=== PATIENT | male | born 1960 | race Caucasian/White ===

== ENCOUNTER 2024-11-19 11:24 | Outpatient (AMB) | payer BC, SELFPAY ==
--- NOTE | 2024-11-19 11:33 | MHC.PC.OV ---
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 Required: No Allergies No Known Allergies Allergy (Verified 11/19/24 11:36) Tobacco use date assessed: 11/19/24 Fall risk assessment: No Falls in past year Last assessed Fall Risk: 11/19/24 Dental Screening Dental Screen Date: 11/19/24 Did you have a dental visit in the last 12 months?: No Did you have a dental problem in the last 6 months where you did not have access to dental care?: No Was dental information given to patient?: Patient has dentist HPI HPI Comments History of Present Illness Details 64 year old male with a past medical history of osteoarthritis, polyarthralgia, presenting to [facility]. Saw me remotely for the past few years had been following at [facility] with Dr Mayorga who retired Patient reports diffuse arthritis-joint pain of the hands, wrists, knees hips, shoulders. Has tried all otc medication. Aleve was working but more or less stopped being effective. Bad side effects with oxycodone in the past. Difficulty walking. Numbness from the bottom of feet.foot bad develops within seconds of standing and over just a few minutes of walking or standing progresses up to the thighs. Has minimal low back pain. Glucose mildly elevated in the past. Declines colonoscopy ROS see HPI PHYSICAL EXAM: GENERAL: Alert and oriented x 3. NAD EYES: EOMI. Anicteric. HENT: Moist mucous membranes. No scleral icterus. No cervical lymphadenopathy. LUNGS: Clear to auscultation bilaterally. CARDIOVASCULAR: Regular rate and rhythm. No murmur. No JVD. ABDOMEN: Soft, non-tender +bs EXTREMITIES: No edema. Non-tender. Warm, +PT pulses SKIN: No rashes or lesions. Warm. NEUROLOGIC: Minimal decreased right dorsiflexion versus left. CN II-XII grossly intact PSYCHIATRIC: Cooperative. Appropriate mood and affect [facility] Surgical History H/O repair of rotator cuff History of tonsillectomy Family History Maternal Grandmother No problems noted. Maternal Grandfather Leukemia Mother Dementia Father Heart attack Sister Cancer Other FH: mental illness Social History Housing: House Patient Tobacco Use Status: Current everyday Tobacco user Cigarette Packs Per Day: 0.5 e-Cigarette/Vaping Use: Never Used Second Hand Smoke Exposure: No service: No Current occupational status: retired Cognitive needs: Yes (memory problems) Hearing needs: Yes (hard of hearing due to was build up) Vision needs: Yes (glasses) Physical exam (Primary Care) Vital Signs: Last Vital Signs Temp 98.2 F 11/19/24 11:42 Pulse 88 11/19/24 11:42 Resp 16 11/19/24 11:42 BP 136/86 11/19/24 11:42 Pulse Ox 96 11/19/24 11:42 Oxygen Delivery Method Room Air 11/19/24 11:42 BMI result Body Mass Index 40.4 Tobacco/Smoking Status: Tobacco use Status Tobacco use date assessed 11/19/24 11/19/24 11:45 Patient Tobacco Use Status Current everyday Tobacco 11/19/24 11:45 e-Cigarette/Vaping Use Never Used 11/19/24 11:45 Coding Level of Care Code New Pt Level 4 (41306) Complex EM visit Add On G2211 Diagnoses Polyarthralgia M25.50 Neuropathy involving both lower extremities G57.93 Laterality: bilateral Elevated glucose R73.09 Assessment & Plan Assessment & Plan (1) Polyarthralgia: Code(s): M25.50 - Pain in unspecified joint Category: Medical (2) Lower extremity neuropathy: Code(s): G57.90 - Unspecified mononeuropathy of unspecified lower limb Category: Medical Qualifiers: Laterality: bilateral Qualified Code(s): G57.93 - Unspecified mononeuropathy of bilateral lower limbs (3) Elevated glucose: Code(s): R73.09 - Other abnormal glucose Category: Medical Plan 64 year old male presenting to [facility] care Reporting severe neuropathy in b/l legs. labs ordered. us arterial, EMG ordered. Xray lumbar spine, referral neurology OA-Might consider xrays, rheumatology. Trial cymbalta. Tramadol prn severe pain. Can continue aleve Orders: Orders Comprehensive Met. Panel Today G57.90 - Unspecified mononeuropathy of unspecified lower limb, M25.50 - Pain in unspecified joint, R73.09 - Other abnormal glucose, Z13.220 - Encounter for screening for lipoid disorders, Z13.228 - Encounter for screening for other metabolic disorders US arterial duplex LE BI Today G57.90 - Unspecified mononeuropathy of unspecified lower limb, M25.50 - Pain in unspecified joint, R73.09 - Other abnormal glucose, Z13.220 - Encounter for screening for lipoid disorders, Z13.228 - Encounter for screening for other metabolic disorders Lyme IgG/IgM w/reflex to WB Today G57.90 - Unspecified mononeuropathy of unspecified lower limb, M25.50 - Pain in unspecified joint, R73.09 - Other abnormal glucose, Z13.220 - Encounter for screening for lipoid disorders, Z13.228 - Encounter for screening for other metabolic disorders Vitamin B12 and Folate Today G57.90 - Unspecified mononeuropathy of unspecified lower limb, M25.50 - Pain in unspecified joint, R73.09 - Other abnormal glucose, Z13.220 - Encounter for screening for lipoid disorders, Z13.228 - Encounter for screening for other metabolic disorders Hemoglobin A1c Today G57.90 - Unspecified mononeuropathy of unspecified lower limb, M25.50 - Pain in unspecified joint, R73.09 - Other abnormal glucose, Z13.220 - Encounter for screening for lipoid disorders, Z13.228 - Encounter for screening for other metabolic disorders NE electromyogram (EMG) Today G57.90 - Unspecified mononeuropathy of unspecified lower limb, M25.50 - Pain in unspecified joint, R73.09 - Other abnormal glucose, Z13.220 - Encounter for screening for lipoid disorders, Z13.228 - Encounter for screening for other metabolic disorders XR lumbar spine 2-3V Today G57.90 - Unspecified mononeuropathy of unspecified lower limb, M25.50 - Pain in unspecified joint, R73.09 - Other abnormal glucose, Z13.220 - Encounter for screening for lipoid disorders, Z13.228 - Encounter for screening for other metabolic disorders NE nerve conduction velocity Today G57.90 - Unspecified mononeuropathy of unspecified lower limb, M25.50 - Pain in unspecified joint, R73.09 - Other abnormal glucose, Z13.220 - Encounter for screening for lipoid disorders, Z13.228 - Encounter for screening for other metabolic disorders Referrals Neurology Referral G57.90 - Unspecified mononeuropathy of unspecified lower limb, M25.50 - Pain in unspecified joint, R73.09 - Other abnormal glucose, Z13.220 - Encounter for screening for lipoid disorders, Z13.228 - Encounter for screening for other metabolic disorders Medications: New duloxetine then increase to 60mg daily 30 mg PO DAILY 7 caps 0RF duloxetine 60 mg PO DAILY 90 caps 3RF tramadol 50 mg PO TID PRN 60 tabs 0RF pain Zepbound (tirzepatide (weight loss)) 2.5 mg (0.5 mL) subcut QWEEK 2 mL 3RF NS
[2024-11-19 11:42] VITALS: BP 136/86; PULSE 88; RESP 16; TEMP 36.8; O2SAT 96; BMI 40.4
== END 2024-11-19 12:24 | disposition home or self-care (01) ==
LOC: HO.HMCFM 11:25
PROVIDERS: PCP Internal Medicine; Visit Provider Internal Medicine
DX: M25.50 Pain in unspecified joint (principal); G57.93 Unspecified mononeuropathy of bilateral lower limbs; R73.09 Other abnormal glucose

== ENCOUNTER 2024-11-19 11:24 | Outpatient (REF) | payer BC, SELFPAY ==
[2024-11-19 18:09] LABS: Alanine Aminotransferase 47 U/L (0-40); Albumin Level 4.6 g/dL (3.5-5.0); Alkaline Phosphatase 65 U/L (39-117); Anion Gap 14 (12-20); Aspartate Amino Transferase 36 U/L (5-37); Blood Urea Nitrogen 19 mg/dL (9-16); Calcium 9.6 mg/dL (8.4-10.2); Carbon Dioxide 24 mmol/L (22-29); Chloride 105 mmol/L (96-108); Estimated Glomerular Filt Rate > 60; Potassium 4.3 mmol/L (3.3-5.1); Sodium 139 mmol/L (135-145); Total Protein 6.9 g/dL (6.5-8.0)
[2024-11-19 18:18] LABS: Folate 5.1 ng/mL (> or = 4.0); Vitamin B12 404 pg/mL (200-900)
[2024-11-21 07:48] LABS: Lyme Blot 1.74 index
[2024-11-21 15:05] LABS: Lyme Abs Screen POSITIVE
[2024-11-22 22:04] LABS: 39KD (IgG) Band NON-REACTIVE; 41KD (IgG) Band NON-REACTIVE; Lyme IgG Blot Interp NEGATIVE (NEGATIVE); Lyme IgM Blot Interp NEGATIVE (NEGATIVE)
== END 2024-11-19 11:25 | disposition home or self-care (01) ==
LOC: HO.WFDLDS 11:24
PROVIDERS: PCP Internal Medicine; Visit Provider Internal Medicine
DX: R73.09 Other abnormal glucose (principal); M25.50 Pain in unspecified joint; G57.93 Unspecified mononeuropathy of bilateral lower limbs; G57.90 Unspecified mononeuropathy of unspecified lower limb; Z13.228 Encounter for screening for other metabolic disorders; Z13.220 Encounter for screening for lipoid disorders
CPT/HCPCS: 36415; 80053; 82607; 82746; 83036; 86617; 86618

== ENCOUNTER 2025-01-01 08:23 | Outpatient (REF) | payer BC, SELFPAY ==
--- NOTE | 2025-01-01 08:25 | EMG_ITS ---
Chief complaint: Neuropathy Reason for referral: Neuropathy, polyarthralgia Referred by:?Eleonora Saleem Procedure done: Bilateral lower extremities NCS/EMG Bilateral tibial and peroneal motor responses were obtained with F waves. Tibial H reflexes were obtained. Bilateral superficial peroneal and sural sensory studies were performed and bilateral median and lateral mixed plantars sensory studies were performed. Left peroneal motor study was normal. Right peroneal study revealed decreased amplitude but normal conduction velocities. Tibial motor studies were normal.. Superficial peroneal amplitude were reduced on the left side and right superficial peroneal response was absent. Mixed plantars sensory studies revealed decreased amplitude and borderline conduction velocities. Impression: Moderate mostly sensory neuropathy in feet more than legs. MTDD
== END 2025-01-01 08:24 | disposition home or self-care (01) ==
LOC: HO.NEURO 08:23
PROVIDERS: PCP Internal Medicine; Visit Provider Internal Medicine
DX: G57.93 Unspecified mononeuropathy of bilateral lower limbs (principal); M25.571 Pain in right ankle and joints of right foot; M25.572 Pain in left ankle and joints of left foot; Z13.220 Encounter for screening for lipoid disorders; Z13.228 Encounter for screening for other metabolic disorders; R73.09 Other abnormal glucose
CPT/HCPCS: 95886; 95913

== ENCOUNTER → 2025-01-01 08:45 | Outpatient (BNV) | payer BC, SELFPAY | PROVIDERS: PCP Internal Medicine; Visit Provider Psychiatry & Neurology Neurology | DX: G57.83 Other specified mononeuropathies of bilateral lower limbs (principal) | CPT/HCPCS: 95886; 95913 ==

== ENCOUNTER 2025-01-22 08:27 | Outpatient (REF) | payer BC, SELFPAY ==
--- NOTE | ~2025-01-22 | US_ITS ---
EXAMINATION: Noninvasive assessment of the bilateral lower extremities without ARTERIAL DUPLEX, ANKLE BRACHIAL INDICES (ABIs), and PULSE VOLUME RECORDINGS (PVRs). CLINICAL INFORMATION: G 57.90. Unspecified mononeuropathy of the lower extremity. TECHNIQUE: Duplex Doppler techniques with waveform analysis and measurement of velocities in the bilateral common femoral, profunda femoris, superficial femoral, popliteal and tibial arteries were performed. The study was performed only at rest. COMPARISON: None FINDINGS: DIRECT DUPLEX DOPPLER FINDINGS: RIGHT LEG: Common femoral artery: 96 cm/s, phasicity: Triphasic Profunda femoris artery: 59 cm/s, phasicity: Triphasic. Superficial femoral artery (proximal): 76 cm/s, phasicity: Triphasic. Superficial femoral artery (mid): 71 cm/s, phasicity: Triphasic. Superficial femoral artery (distal): 71 cm/s, phasicity: Triphasic. Popliteal artery: 66 cm/s, phasicity: Triphasic. Posterior tibial artery: 78 cm/s, phasicity: Triphasic. Peroneal artery: 41 cm/s, phasicity: Triphasic. Anterior tibial artery: 66 cm/s, phasicity: Triphasic. Dorsalis pedis artery: 66 cm/s, phasicity:Triphasic. LEFT LEG: Common femoral artery: 80 cm/s, phasicity: Triphasic. Profunda femoris artery: 76 cm/s, phasicity: Triphasic. Superficial femoral artery (proximal): 25 cm/s, phasicity: Biphasic. Superficial femoral artery (mid): 62 cm/s, phasicity: Triphasic. Superficial femoral artery (distal): 47 cm/s, phasicity: Triphasic. Popliteal artery: 50 cm/s, phasicity: Triphasic. Posterior tibial artery: 65 cm/s, phasicity: Triphasic. Peroneal artery: 51 cm/s, phasicity: Triphasic. Anterior tibial artery: 68 cm/s, phasicity: Triphasic. Dorsalis pedis artery: 61 cm/s, phasicity: Triphasic. US/US arterial duplex LE BI IMPRESSION: Right leg: Normal patency and normal phasic waveforms. Left leg: Normal patency with normal waveforms with mild inflow disease in the proximal profundal femoral artery. Electronically signed by: Edawr Bain MD 01/22/2025 09:34 AM EDT RP
== END 2025-01-22 08:28 | disposition home or self-care (01) ==
LOC: HO.US 08:27
PROVIDERS: PCP Internal Medicine; Visit Provider Internal Medicine
DX: G57.90 Unspecified mononeuropathy of unspecified lower limb (principal); M25.50 Pain in unspecified joint; Z13.228 Encounter for screening for other metabolic disorders; R73.09 Other abnormal glucose; Z13.220 Encounter for screening for lipoid disorders
CPT/HCPCS: 93925

== ENCOUNTER → 2025-01-22 08:29 | Outpatient (BNV) | payer BC, SELFPAY | PROVIDERS: PCP Internal Medicine; Visit Provider Radiology Diagnostic Radiology | DX: I73.9 Peripheral vascular disease, unspecified (principal) | CPT/HCPCS: 93925 ==

== ENCOUNTER 2025-02-08 13:42 | Outpatient (AMB) | payer BC, SELFPAY ==
[2025-02-08 13:47] VITALS: BP 126/84; PULSE 93; RESP 16; O2SAT 96; BMI 39.7
--- NOTE | 2025-02-08 13:47 | MHC.PC.OV ---
Vital Signs 02/08/25 13:47 Height 5 ft 10.47 in Weight 280 lb 6 oz BMI 39.7 BP 126/84 Blood Pressure Location Rt brachial Position Sitting Respiration 16 Pulse 93 Pulse Source Pulse Oximeter Pulse Oximetry (%) 96 Oxygen Delivery Method Room Air Intake Visit Reasons: Go over results Intake Note: Ulrasound results. Nerve conduction study results. 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 Has tried all otc medication. Aleve was working but more or less stopped being effective. Bad side effects with oxycodone in the past. He has taken 2 or 3 tramadol only. Did not tolerate cymbalta. Difficulty walking. Numbness from the bottom of feet.foot bad develops within seconds of standing and over just a few minutes of walking or standing progresses up to the thighs. Has minimal low back pain. Xray lumbar spine with moderate disc space narrowing, arthritis. EMG with predominantly sensory neuropathy. Didnt realize he had separate neurology consult. Re-referred. Symptoms continue. Labs benign. Arterial b/l Right leg: Normal patency and normal phasic waveforms. Left leg: Normal patency with normal waveforms with mild inflow disease in the proximal profundal femoral artery. EMG Impression: Moderate mostly sensory neuropathy in feet more than legs. Declines colonoscopy ROS see HPI PHYSICAL EXAM: GENERAL: Alert and oriented x 3. NAD EYES: EOMI. Anicteric. HENT: Moist mucous membranes. No scleral icterus. No cervical lymphadenopathy. LUNGS: Clear to auscultation bilaterally. CARDIOVASCULAR: Regular rate and rhythm. No murmur. No JVD. ABDOMEN: Soft, non-tender +bs EXTREMITIES: No edema. Non-tender. SKIN: No rashes or lesions. Warm. NEUROLOGIC: Minimal decreased right dorsiflexion versus left. CN II-XII grossly intact PSYCHIATRIC: Cooperative. Appropriate mood and affect PENDING SALE TO [facility] Surgical History H/O repair of rotator cuff History of tonsillectomy Family History Maternal Grandmother No problems noted. Maternal Grandfather Leukemia Mother Dementia Father Heart attack Sister Cancer Other FH: mental illness Social History Housing: House Patient Tobacco Use Status: Current everyday Tobacco user Cigarette Packs Per Day: 0.5 e-Cigarette/Vaping Use: Never Used Second Hand Smoke Exposure: No service: No Current occupational status: retired Cognitive needs: Yes (memory problems) Hearing needs: Yes (hard of hearing due to was build up) Vision needs: Yes (glasses) Physical exam (Primary Care) Vital Signs: Last Vital Signs Pulse 93 02/08/25 13:47 Resp 16 02/08/25 13:47 BP 126/84 02/08/25 13:47 Pulse Ox 96 02/08/25 13:47 Oxygen Delivery Method Room Air 02/08/25 13:47 BMI result Body Mass Index 39.7 Tobacco/Smoking Status: Tobacco use Status Tobacco use date assessed 02/08/25 02/08/25 13:55 Patient Tobacco Use Status Current everyday Tobacco 02/08/25 13:50 e-Cigarette/Vaping Use Never Used 02/08/25 13:50 Coding Level of Care Code Est Pt Level 4 (10629) Diagnoses Polyarthralgia M25.50 Elevated glucose R73.09 Spinal stenosis, unspecified spinal region M48.00 Spinal region: unspecified Assessment & Plan Assessment & Plan (1) Polyarthralgia: Code(s): M25.50 - Pain in unspecified joint Category: Medical (2) Elevated glucose: Code(s): R73.09 - Other abnormal glucose Category: Medical (3) Spinal stenosis: Code(s): M48.00 - Spinal stenosis, site unspecified Category: Medical Qualifiers: Spinal region: unspecified Qualified Code(s): M48.00 - Spinal stenosis, site unspecified Plan 64 year old for follow up LE weakness, pain-referral to neurology. MRI lumbar spine Polyarthralgia-referral rheumatology. Labs ordered. [place] gabapentin Orders: Orders Erythrocyte Sedimentation Rate Today M25.50 - Pain in unspecified joint C Reactive Protein Today M25.50 - Pain in unspecified joint Uric Acid Today M25.50 - Pain in unspecified joint DONALD Reflex Titer and Pattern Today G57.93 - Unspecified mononeuropathy of bilateral lower limbs, M25.50 - Pain in unspecified joint MR lumbar spine wo con Today G57.93 - Unspecified mononeuropathy of bilateral lower limbs, M48.00 - Spinal stenosis, site unspecified, R29.898 - Other symptoms and signs involving the musculoskeletal system Rheumatoid Factor Today M25.50 - Pain in unspecified joint Cyclic Citrullinated Peptide Today M25.50 - Pain in unspecified joint Referrals Neurology Referral G57.93 - Unspecified mononeuropathy of bilateral lower limbs, M48.00 - Spinal stenosis, site unspecified, R29.898 - Other symptoms and signs involving the musculoskeletal system Rheumatology Referral M25.50 - Pain in unspecified joint Medications: New gabapentin 300 mg PO TID 90 caps 3RF
== END 2025-02-08 14:22 | disposition home or self-care (01) ==
LOC: HO.HMCFM 13:43
PROVIDERS: PCP Internal Medicine; Visit Provider Internal Medicine
DX: M25.50 Pain in unspecified joint (principal); R73.09 Other abnormal glucose; M48.00 Spinal stenosis, site unspecified

== ENCOUNTER 2025-02-08 13:42 | Outpatient (REF) | payer BC, SELFPAY ==
[2025-02-08 18:52] LABS: Uric Acid 4.3 mg/dL (3.4-7.0)
[2025-02-08 20:52] LABS: Erythrocyte Sedimentation Rate 6 MM/HR (0-15)
[2025-02-12 10:08] LABS: Anti Nuclear Antibody Screen NEGATIVE (NEGATIVE)
== END 2025-02-08 13:43 | disposition home or self-care (01) ==
LOC: HO.WFDLDS 13:42
PROVIDERS: PCP Internal Medicine; Visit Provider Internal Medicine
DX: G57.93 Unspecified mononeuropathy of bilateral lower limbs (principal); M25.50 Pain in unspecified joint; R73.09 Other abnormal glucose; M48.00 Spinal stenosis, site unspecified
CPT/HCPCS: 36415; 84550; 85652; 86038; 86140; 86200; 86431

== ENCOUNTER 2025-03-01 16:08 | Outpatient (AMB) | payer BC, SELFPAY ==
--- NOTE | 2025-03-01 15:30 | A.OFFPC_ITS ---
Intake Visit Reasons: ultrasound Allergies No Known Allergies Allergy (Verified 02/08/25 13:52) Tobacco use date assessed: 02/08/25 Dental Screening Dental Screen Date: 11/19/24 HPI HPI Comments History of Present Illness Details 64 year old male with a past medical his tory of lumbar ddd, LE weakness, osteoarthritis, polyarthralgia, presenting for follow up Difficulty walking. Numbness from the bottom of feet. foot pain develops within seconds of standing and over just a few minutes of walking or standing p rogresses up to the thighs. Has minimal low back pain. Xray lumbar spine with moderate disc space narrowing, arthritis. MRI is pending. EMG with predominantly sensory neuropathy. Labs benign. Arterial u/s benign. Neurology referral is pending. Patient has continue diffuse arthritis-joint pain of the hands, wrists, knees hips, shoulders. Has tried all otc medication. Aleve was working but more or less stopped being effective. Bad side effects with oxycodone in the past. He has taken 2 or 3 tramadol only. Did not tolerate cymbalta. Rheumatology referral was placed. He Arterial b/l Right leg: Normal patency and normal phasic waveforms. Left leg: Normal patency with normal waveforms with mild inflow disease in the proximal profundal femoral artery. EMG Impression: Moderate mostly sensory neuropathy in feet more than legs. Declines colonoscopy ROS see HPI PHYSICAL EXAM: Telehealth [facility] Surgical History H/O repair of rotator cuff History of tonsillectomy Family History Maternal Grandmother No problems noted. Maternal Grandfather Leukemia Mother Dementia Father Heart attack Sister Cancer Other FH: mental illness Social History Housing: House Patient Tobacco Use Status: Current everyday Tobacco user Cigarette Packs Per Day: 0.5 e-Cigarette/Vaping Use: Never Used Second Hand Smoke Exposure: No service: No Current occupational status: retired Cognitive needs: Yes (memory problems) Hearing needs: Yes (hard of hearing due to was build up) Vision needs: Yes (glasses) Physical exam (Primary Care) Tobacco/Smoking Status: Tobacco use Status Tobacco use date assessed 02/08/25 03/01/25 15:30 Patient Tobacco Use Status Current everyday Tobacco 03/01/25 15:30 e-Cigarette/Vaping Use Never Used 03/01/25 15:30 Telehealth Telehealth Telehealth Platform: Telephone Location of provider rendering services: practice address Location of patient: address on file Patient Identification confirmed using: Name, : Yes Telehealth method: voice only Patient verbally consented to treatment: Yes Patient verbally consented to billing insurance company: Yes Patient informed of any privacy concerns related to visit: Yes Minutes spent on Phone/Video with Pt.: 24 Coding Level of Care Code Tele Est Pt Level 3 (02592) Diagnoses Weakness of both lower extremities R29.898 Laterality: bilateral Spinal stenosis, unspecified spinal region M48.00 Spinal region: unspecified Neuropathy involving both lower extremities G57.93 Laterality: bilateral Polyarthralgia M25.50 Assessment & Plan Assessment & Plan (1) Leg weakness: Code(s): R29.898 - Other symptoms and signs involving the musculoskeletal system Category: Medical Qualifiers: Laterality: bilateral Qualified Code(s): R29.898 - Other symptoms and signs involving the musculoskeletal system (2) Spinal stenosis: Code(s): M48.00 - Spinal stenosis, site unspecified Category: Medical Qualifiers: Spinal region: unspecified Qualified Code(s): M48.00 - Spinal stenosis, site unspecified (3) Lower extremity neuropathy: Code(s): G57.90 - Unspecified mononeuropathy of unspecified lower limb Category: Medical Qualifiers: Laterality: bilateral Qualified Code(s): G57.93 - Unspecified mononeuropathy of bilateral lower limbs (4) Polyarthralgia: Code(s): M25.50 - Pain in unspecified joint Category: Medical Plan LE weakness & pain. EMG with predominantly sensory neuropathy. xr lumbar spine with considerable ddd. MRI is pending. Neurology referral pending Continue current medications
== END 2025-03-01 17:05 | disposition home or self-care (01) ==
LOC: HO.HMCFM 16:08
PROVIDERS: PCP Internal Medicine; Visit Provider Internal Medicine
DX: R29.898 Other symptoms and signs involving the musculoskeletal system (principal); M48.00 Spinal stenosis, site unspecified; G57.93 Unspecified mononeuropathy of bilateral lower limbs; M25.50 Pain in unspecified joint